=== PATIENT | female | born 1995 | race Two or more races ===

== ENCOUNTER → 2022-08-25 | Outpatient (CLI) | payer OTHER ==
[2022-08-25 10:47] LABS: Basophils # (auto) 0 10 ^3/uL (0-0.2); Eosinophils # (auto) 0 10 ^3/uL (0-0.8); Lymphocytes # (auto) 2.1 10 ^3/uL (0.4-5.4); Monocytes # (auto) 0.5 10 ^3/uL (0-1.3); Monocytes % (auto) 5.4 % (0.0-12.0); Neutrophils # (auto) 7.3 10 ^3/uL (1.6-8.6); Red Blood Cells 4.23 10^6/uL (4.0-5.20)
[2022-08-25 10:49] LABS: Basophils % (auto) 0.3 % (0.0-2.0); Eosinophils % (auto) 0.4 % (0.0-7.0); Hematocrit 33.7 % (36.0-46.0); Hemoglobin 10.9 g/dL (12.2-16.2); Lymphocytes % (auto) 21.2 % (10.0-50.0); Mean Corpuscular Hemoglobin 25.8 pg (28.0-32.0); Mean Corpuscular Hgb Conc. 32.3 g/dL (32.0-36.0); Mean Corpuscular Volume 79.8 fL (80.0-100.0); Neutrophils % (auto) 72.7 % (37.0-80.0); Nucleated Red Blood Cells % 0.1 %; Red Cell Distribution Width 18.2 % (11.8-14.3)
[2022-08-25 11:38] LABS: Amphetamine Screen, Urine NEGATIVE (NEGATIVE); Cannabinoid Screen, Urine NEGATIVE (NEGATIVE)
[2022-08-25 11:40] LABS: Alcohol, Urine < 3.0 mg/dL (0-10); Barbiturate Scree,Urine NEGATIVE (NEGATIVE); Benzodiazephine Screen, Urine NEGATIVE (NEGATIVE); Cocaine Screen, Urine NEGATIVE (NEGATIVE); Opiate Scree,Urine NEGATIVE (NEGATIVE); Phencyclidine Screen, Urine NEGATIVE (NEGATIVE)
[2022-08-26 05:08] LABS: RPR Non Reactive (Non Reactive)
== END | disposition home or self-care (01) ==
LOC: LAB 10:15
PROVIDERS: ATTEND Obstetrics & Gynecology
DX: Z34.00 Encounter for supervision of normal first pregnancy, unspecified trimester (principal); N39.0 Urinary tract infection, site not specified; Z3A.00 Weeks of gestation of pregnancy not specified
CPT/HCPCS: 36415; 80307; 83036; 84112; 84144; 84702; 85025; 86592; 86703; 86762; 86850; 86900; 86901; 87340

== ENCOUNTER 2022-12-02 16:02 | Observation (INO) | payer OTHER | END 2022-12-02 17:42 | disposition home or self-care (01) | LOC: LDRP 16:02 | PROVIDERS: ADMIT Obstetrics & Gynecology; ATTEND Obstetrics & Gynecology | DX: O36.8130 Decreased fetal movements, third trimester, not applicable or unspecified (principal); Z3A.34 34 weeks gestation of pregnancy | CPT/HCPCS: 59025; 76818; 81002; G0378 ==

== ENCOUNTER → 2022-12-15 | Outpatient (CLI) | payer OTHER | END | disposition home or self-care (01) | LOC: LAB 16:00 | PROVIDERS: ATTEND Obstetrics & Gynecology | DX: Z34.80 Encounter for supervision of other normal pregnancy, unspecified trimester (principal); Z3A.00 Weeks of gestation of pregnancy not specified | CPT/HCPCS: 87081 ==

== ENCOUNTER 2022-12-25 08:25 | Observation (INO) | payer OTHER ==
[2022-12-25] MEDS ORDERED: PREN-96 PO ×2 (10:07)
== END 2022-12-25 10:27 | disposition home or self-care (01) ==
LOC: LDRP 08:25
PROVIDERS: ADMIT Obstetrics & Gynecology; ATTEND Obstetrics & Gynecology
DX: O26.893 Other specified pregnancy related conditions, third trimester (principal); R42 Dizziness and giddiness; R11.0 Nausea; Z3A.37 37 weeks gestation of pregnancy
CPT/HCPCS: 59025; 81002; 94760; G0378

== ENCOUNTER 2023-01-05 02:02 | Inpatient (IN) | payer OTHER ==
[~2023-01-05] VITALS: Ht 160 cm; Wt 117.0 kg
[2023-01-05] VITALS (9 sets, daily range): BP systolic 118–142; BP diastolic 55–84; PULSE 98–142; RESP 16–20; TEMP 98.2–100; O2SAT 97
[~2023-01-05 02:02] MED LIST: PREN-96 PO
[2023-01-05] MEDS ORDERED: LACTATED RINGER'S 1,000 ML IV ONE ×2 (03:00→08:30)
[2023-01-05 03:31] LABS: Basophils # (auto) 0 10 ^3/uL (0-0.2); Basophils % (auto) 0.3 % (0.0-2.0); Eosinophils # (auto) 0 10 ^3/uL (0-0.8); Hematocrit 37.7 % (36.0-46.0); Hemoglobin 12.6 g/dL (12.2-16.2); Lymphocytes # (auto) 1.2 10 ^3/uL (0.4-5.4); Lymphocytes % (auto) 11.6 % (10.0-50.0); Mean Corpuscular Hemoglobin 28.8 pg (28.0-32.0); Mean Corpuscular Hgb Conc. 33.5 g/dL (32.0-36.0); Mean Corpuscular Volume 85.9 fL (80.0-100.0); Monocytes % (auto) 9.9 % (0.0-12.0); Neutrophils # (auto) 8.2 10 ^3/uL (1.6-8.6); Neutrophils % (auto) 78.2 % (37.0-80.0); Red Blood Cells 4.39 10^6/uL (4.0-5.20); Red Cell Distribution Width 16.3 % (11.8-14.3); White Blood Cell 10.4 10^3/uL (4.4-10.8)
[2023-01-05 03:45] LABS: Urine Bacteria FEW /hpf (None Seen); Urine Blood 3+ /uL (Negative); Urine Clarity Clear (Clear); Urine Color Yellow (Yellow); Urine Protein, UAD Negative (Negative); Urine Specific Gravity 1.006 (1.001-1.035); Urine Urobilinogen Normal (Negative); Urine WBC 2 /hpf (0 - 5); Urine pH 6.5 (5.0-8.0)
[2023-01-05 03:47] LABS: INR 0.96 (0.9-1.15); Partial Thromboplastin Time 32.2 SEC (24.5-34.5); Prothrombin Time 10.1 sec (9.3-11.8)
[2023-01-05 03:54] LABS: Alanine Aminotransferase 12 U/L (7-40); Alkaline Phosphatase 163 U/L (46-116); Anion Gap 11 (5-15); Aspartate Aminotransferase 15 U/L (13-40); Calcium 9.1 mg/dL (8.7-10.4); Carbon Dioxide 17 mmol/L (20-30); Chloride 107 mmol/L (98-107); Glucose 86 mg/dL (74-106); Potassium 3.5 mmol/L (3.5-5.1); Sodium 135 mmol/L (136-145)
[2023-01-05 03:55] LABS: Bilirubin, Total 0.8 mg/dL (0.2-1.0); Total Protein 6.6 g/dL (5.7-8.2)
[2023-01-05 03:56] LABS: BUN/Creatinine Ratio 10.9 (10.0-20.0); Blood Urea Nitrogen < 5 mg/dL (9-23)
[2023-01-05 04:02] LABS: Amphetamine Screen, Urine Neg (NEGATIVE); Barbiturate Scree,Urine Neg (NEGATIVE); Benzodiazephine Screen, Urine Neg (NEGATIVE); Cocaine Screen, Urine Neg (NEGATIVE)
[2023-01-05 04:03] LABS: Cannabinoid Screen, Urine Neg (NEGATIVE); Opiate Scree,Urine Neg (NEGATIVE); Phencyclidine Screen, Urine Neg (NEGATIVE)
[2023-01-05] MEDS ORDERED: LACTATED RINGER'S 1,000 ML IV SCH (04:15)
[2023-01-05] MEDS ORDERED: miSOPROStol 50 MCG per PRE-CUT 1/2 TAB PO PRN (04:15)
[2023-01-05] MEDS ORDERED: PHISODERM TOP SOLN 240ML BTL TOP PRN (04:15)
[2023-01-05] MEDS ORDERED: LIDOCAINE 2%HCL (LOCAL ANESTH.) INJ 20ML MDV IJ PRN (04:15)
[2023-01-05] MEDS ORDERED: PROMETHAZINE HCL 25 MG/ML 1ML IV PRN ×2 (04:15→07:15)
[2023-01-05 04:50] LABS: Fern Testing Negative
[2023-01-05] MEDS ORDERED: BUTORPHANOL TARTRATE 2 MG/1 ML VIAL IV PRN ×2 (07:15)
[2023-01-05] MEDS ORDERED: NALBUPHINE HCL 10 MG/1ml INJECTION IV PRN (07:15)
[2023-01-05] MEDS ORDERED: NALBUPHINE HCL 10 MG/1ml INJECTION IM PRN (07:15)
[2023-01-05] MEDS ORDERED: LIDOCAINE HCL 2 %PF INJ 10ML AMP IJ ONE (08:30)
[2023-01-05] MEDS ORDERED: fentaNYL CITRATE 100 MCG/2 ML VL IV ONE (08:30)
[2023-01-05] MEDS ORDERED: NALOXONE HCL 0.4 MG/ML VIAL IV ONE (08:30)
[2023-01-05] MEDS ORDERED: ROPIVACAINE HCL 200 ML EPI SCH (08:30)
[2023-01-05] MEDS ORDERED: ePHEDrine SULFATE 50 MG/ML AMP IV ONE (08:30)
[2023-01-05] MEDS ORDERED: CARBOPROST TROMETHAMINE 250 MCG/1ML VIAL IM PRN (09:30)
[2023-01-05] MEDS ORDERED: METHYLERGONOVINE MALEATE 0.2 MG/ML AMP IM PRN (09:30)
[2023-01-05] MEDS ORDERED: miSOPROStol 100 mcg TAB SL PRN (09:30)
[2023-01-05] MEDS ORDERED: miSOPROStol 100 mcg TAB PR PRN (09:30)
[2023-01-05] MEDS ORDERED: LACT. RINGERS/OXYTOCIN 20UNITS 500 ML IV ONE ×2 (09:30→10:00)
[2023-01-05] MEDS ORDERED: DIPHENOXYLATE W/ATROPINE 2.5 MG TAB PO SCH (10:00)
[2023-01-05] MEDS ORDERED: miSOPROStol 100 mcg TAB ONE (12:06)
[2023-01-05] MEDS: IBUPROFEN 600 MG TAB PO PRN (15:01)
[2023-01-05] MEDS: DERMOPLAST 60ML BOTTLE TOP PRN (15:43)
[2023-01-05] MEDS: WITCH HAZEL-GLYCERIN PAD TOP PRN (15:43)
[2023-01-05 15:47] LABS: COVID19 ANTIGEN SOFIA FIA POSITIVE (NEGATIVE)
[2023-01-05] MEDS: ACETAMINOPHEN 325 MG TAB PO PRN (23:58)
[2023-01-06 03:00] VITALS: BP 117/65; PULSE 85; RESP 18; TEMP 98.5; O2SAT 96
[2023-01-06 08:00] VITALS: BP 128/76; PULSE 93; RESP 18; TEMP 98.3; O2SAT 98
[2023-01-06 08:06] LABS: RPR Non Reactive (Non Reactive)
[2023-01-06 11:00] VITALS: BP 148/83; PULSE 86; RESP 18; TEMP 98.3; O2SAT 98
[2023-01-06] MEDS: IBUPROFEN 600 MG TAB PO PRN ×2 (11:15→23:14)
[2023-01-06 15:00] VITALS: BP 120/77; PULSE 83; RESP 18; TEMP 97.7; O2SAT 97
[2023-01-06 19:12] VITALS: BP 133/83; PULSE 90; RESP 18; TEMP 98.3; O2SAT 99
[2023-01-06 23:00] VITALS: BP 136/77; PULSE 96; RESP 18; TEMP 98.4; O2SAT 100
[2023-01-07 02:40] VITALS: BP 122/67; PULSE 84; RESP 18; TEMP 98.7; O2SAT 97
[2023-01-07 07:20] VITALS: BP 132/77; PULSE 83; RESP 16; TEMP 97.5; O2SAT 97
[2023-01-07] MEDS: ACETAMINOPHEN 325 MG TAB PO PRN (07:59)
[2023-01-07 11:10] VITALS: BP 131/72; PULSE 76; RESP 18; TEMP 98; O2SAT 96
[2023-01-07] MEDS: WITCH HAZEL-GLYCERIN PAD TOP PRN (11:29)
[2023-01-07] MEDS: DERMOPLAST 60ML BOTTLE TOP PRN (11:29)
[2023-01-07 21:06] LABS: Treponema pallidum Ab (FTA-Ab) Non Reactive (Non Reactive)
== END 2023-01-07 11:58 | disposition home or self-care (01) | DRG 805 ==
LOC: LDRP 02:02 → OBSVTOIN 04:10 → LDRP 04:32
PROVIDERS: ADMIT Obstetrics & Gynecology; ATTEND Obstetrics & Gynecology
PROC: 10E0XZZ Delivery of Products of Conception, External Approach (ICD-10-PCS; principal; 2023-01-05)
PROC: 0KQM0ZZ Repair Perineum Muscle, Open Approach (ICD-10-PCS; 2023-01-05)
PROC: 3E0R3BZ Introduction of Anesthetic Agent into Spinal Canal, Percutaneous Approach (ICD-10-PCS; 2023-01-05)
PROC: 00HU33Z Insertion of Infusion Device into Spinal Canal, Percutaneous Approach (ICD-10-PCS; 2023-01-05)
DX: O98.52 Other viral diseases complicating childbirth (principal); U07.1 COVID-19; Z37.0 Single live birth; O41.03X0 Oligohydramnios, third trimester, not applicable or unspecified; O69.81X0 Labor and delivery complicated by cord around neck, without compression, not applicable or unspecified; O77.0 Labor and delivery complicated by meconium in amniotic fluid; O70.1 Second degree perineal laceration during delivery; Z3A.39 39 weeks gestation of pregnancy
CPT/HCPCS: 36415; 59409; 62282; 76815; 76818; 80053; 80307; 81001; 85025; 85610; 85730; 86592; 86850; 86900; 86901; 87086; 87426; 94760; 96360; 96361; 96365; 96366; 96372; G0378; J2590